=== PATIENT | female | born 1980 | race Caucasian/White ===

== ENCOUNTER → 2025-07-09 14:00 | Outpatient (REF) | payer OTHER, SELFPAY ==
[2025-07-09 14:23] VITALS: BP 154/82; BP_SYST 79
== END ==
LOC: RADI 14:00
PROVIDERS: ATTENDING PHYSICIAN Otolaryngology; FAMILY PHYSICIAN Physician Assistant
DX: D11.0 Benign neoplasm of parotid gland (principal)
CPT/HCPCS: 42400; 76942; 88173; 88305